=== PATIENT | male | born 1975 | race Caucasian/White ===

== ENCOUNTER 2020-05-14 05:32 | Emergency (ER) | payer MEDICAID ==
[~2020-05-14] VITALS: Ht 172.7 cm; Wt 99.3 kg
--- NOTE | 2020-05-14 05:45 | NUR ---
PT BIBRA C/O BACK AND NECK SPASMS. PT AAOX4 BREATHING EVENLY AND UNLABORED. PT HAS QUARTER SIZE WOUND ON RT HEEL AND VARIOUS OTHER WOUNDS ON LOWER EXTREMITES IN VARYING STAGES OF HEALING. PT UNABLE TO MOVE EXTREMITES EXCEPT FOR RT ARM. PT HAS THOMPSON CATHETER INSERTED. PT SKIN WARM AND DRY. PT ATTACHED TO MONITOR AND POX. PT GIVEN BLANKET AND CALL LIGHT WITHIN REACH.
[2020-05-14] MEDS ORDERED: DIAZEPAM 5 MG TABLET ONE (06:18)
[2020-05-14] MEDS: DIAZEPAM 5 MG TABLET PO ONE (06:20)
--- NOTE | 2020-05-14 06:38 | NUR ---
PT PLACED ON 2L O2 FOR COMFORT
--- NOTE | 2020-05-14 07:05 | NUR ---
GAVE REPORT TO LUIS MARTIN FOR KRISTEN
--- NOTE | 2020-05-14 10:11 | NUR ---
Airport Shuttle Driver: human services instructor requested to discuss discharge plan with the patient. guest experience manager, Clarice Restrepo requested for this SW to ask the patient why he did not want to return to his prior living arrangements at [facility]. Patient is a 45-year-old, white male. SW met with the patient at his hospital bed in the emergency department. Patient is alert and oriented x4. Patient is lethargic. SW asked the patient why he did not want to return to the [facility] care. Patient stated, "I was having body spasms and they told me to shut up because the other patient's were sleeping." SW let the patient know that case management will be coordinating his discharge and that there is a possibility he may have to return to the board [facility] care. Patient does not have a conservator or access to any social support. PLAN: SW will follow up with rehabilitation caseworker, Clarice Restrepo [phone].
--- NOTE | 2020-05-14 10:17 | NUR ---
Lang Interpreter: Per request, NELL discussed with Clarice Restrepo [phone] that patient does not want to return to his prior living arrangement at the [facility] care. Clarice stated she will continue to work on discharge plan. No further SS interventions needed at this time.
--- NOTE | 2020-05-14 10:18 | NUR ---
PATIENT ALERT AND ORIENTED X4, BREATHING EVEN AND UNLABORED, NO SOB NOTED, NEEDS ATTENDED, KEPT COMFORTABLE. DIRECTOR DRUG SAFETY THEODORE CAME AND SPOKE TO THE PATIENT, AND AGREED TO GO BACK TO THE FACILITY. WILL CALL FOR TRANSPORTATION.
--- NOTE | 2020-05-14 10:38 | NUR ---
CALLED [facility] FOR TRANSPORT TO [facility]. ETA 45-60 MINUTES.
--- NOTE | 2020-05-14 10:42 | NUR ---
ATTEMPTED TO CALL THE FACILITY FOUR TIMES AT [phone], RECEIVED A BUSY SIGNAL.
--- NOTE | 2020-05-14 11:10 | NUR ---
Patient discharged to the [facility] in stable condition. Written and verbal after care instructions given. Patient verbalizes understanding of instruction.
[2020-05-14 11:12] VITALS: BP 140/72
== END 2020-05-14 11:14 ==
LOC: ER 05:32
DX: M62.830 Muscle spasm of back (principal)